=== PATIENT | female | born 1990 | race Caucasian/White ===

== ENCOUNTER 2021-02-26 06:17 | Inpatient (IN) ==
[~2021-02-26 06:17] MED LIST: Buffered Lidocaine 1% SYRIN 1 ml INTRADERM ONE; Lactated Ringers 1000 ml BAG 1,000 ML IV SCH
[2021-02-26] MEDS ORDERED: Heparin 5000 UNITS/ML 1 mL VIAL ONE (06:46)
[2021-02-26] MEDS ORDERED: ceFAZolin 2 GM PREMIX 2 GM/50 ML BAG ONE (06:47)
[2021-02-26] MEDS ORDERED: ceFAZolin 1 GM ADVAN 1 GM ADDV.VIAL IVPB ONE (06:47)
[2021-02-26] MEDS ORDERED: Propofol 10 MG/ML 20 ML BTL ONE ×2 (07:04→08:13)
[2021-02-26] MEDS ORDERED: Lidocaine 2% PF 5 ML VIAL ONE (07:04)
[2021-02-26] MEDS ORDERED: Rocuronium 50 mg VIAL 10 mg/ml 5 ml VIAL (50 mg) ONE ×3 (07:04→11:07)
[2021-02-26] MEDS ORDERED: Midazolam 2 mg/2 ml VIAL 1 mg/ml 2 ml VIAL (2 mg) ONE (07:04)
[2021-02-26] MEDS ORDERED: fentaNYL 250 mcg/5 ml 50 MCG/ML 5 ml VIAL (250 MCG) ONE (07:04)
[2021-02-26] MEDS ORDERED: Methylene Blue 0.5 % 50 MG/10 ML AMP IV ONE (07:20)
[2021-02-26] MEDS ORDERED: Bupivacaine 0.25% EPI 200,000 30 ML SDV ONE ×2 (07:21→08:37)
[2021-02-26] MEDS ORDERED: Dexamethasone IV 4 MG/ML VIAL 1 ml VIAL ONE (07:50)
[2021-02-26] MEDS ORDERED: Ondansetron 4 mg VIAL 2 MG/ML 2 ml VIAL ONE (07:50)
[2021-02-26] MEDS ORDERED: HYDROmorphone 1 MG/1 ML SYRINGE ONE (07:54)
[2021-02-26] MEDS ORDERED: Acetaminophen IV 1 GM/100ML 1,000 MG/100 ML VIAL IVPB PRN (08:19)
[2021-02-26] MEDS ORDERED: Ondansetron 4 mg VIAL 2 MG/ML 2 ml VIAL IV PRN (08:19)
[2021-02-26] MEDS ORDERED: HYDROmorphone 1 MG/1 ML SYRINGE IV PRN (08:19)
[2021-02-26] MEDS ORDERED: Naloxone 0.4 mg VIAL 0.4 mg/ml 1 ml VIAL IV PRN (08:19)
[2021-02-26] MEDS ORDERED: DiMENhydriNATE IV 50 mg/ml 1 ml VIAL IV PUSH PRN (08:19)
[2021-02-26] MEDS ORDERED: Acetaminophen IV 1 GM/100ML 100 ML ONE ×2 (08:55→13:05)
[2021-02-26] MEDS ORDERED: Dexmedetomidine 200 mcg/2 ml 2 ml VIAL (200 mcg) ONE (09:16)
[2021-02-26] MEDS ORDERED: fentaNYL 100 mcg/2 ml 50 MCG/ML VIAL ONE ×3 (09:58→13:47)
[2021-02-26] MEDS ORDERED: HYDROmorphone 0.5 MG/0.5 ML SYRINGE IV SLOW PU PRN (12:24)
[2021-02-26] MEDS ORDERED: diPHENhydraMINE IV 50 MG/ML 1 ml VIAL (BENADRYL) SLOW PUSH PRN (12:24)
[2021-02-26] MEDS: fentaNYL 100 mcg/2 ml 50 MCG/ML VIAL IV PRN ×3 (13:09→13:48)
[2021-02-26] MEDS ORDERED: DiMENhydriNATE IV 50 mg/ml 1 ml VIAL ONE (13:12)
[2021-02-26] MEDS: Lactated Ringers 1000 ml BAG 1,000 ML IV SCH (14:37)
[2021-02-26] MEDS: Famotidine IV 10 MG/ML 2 ml VIAL (20 mg) IV SLOW PU SCH (21:54)
[2021-02-26] MEDS: HYDROmorphone 1 MG/1 ML SYRINGE IV SLOW PU PRN (21:54)
[2021-02-26] MEDS: Ondansetron 4 mg VIAL 2 MG/ML 2 ml VIAL IV PRN (21:54)
[2021-02-27] MEDS: Lactated Ringers 1000 ml BAG 1,000 ML IV SCH ×2 (00:52→07:33)
[2021-02-27] MEDS: HYDROmorphone 1 MG/1 ML SYRINGE IV SLOW PU PRN ×2 (05:41→10:00)
[2021-02-27] MEDS: Famotidine IV 10 MG/ML 2 ml VIAL (20 mg) IV SLOW PU SCH ×2 (09:28→21:05)
[2021-02-27] MEDS: Ondansetron 4 mg VIAL 2 MG/ML 2 ml VIAL IV PRN ×2 (12:36→21:16)
[2021-02-27] MEDS: Bacitracin OINTMENT TUBE TOPICAL SCH (13:30)
[2021-02-27] MEDS: HYDROcodone/ACET. 7.5/325 LIQ 15 ML UDC PO PRN ×2 (14:27→21:23)
[2021-02-27] MEDS: D5W 1/2 NS KCl 20 meq 1000 ml 1,000 ML IV SCH ×2 (15:53→23:33)
[2021-02-28] MEDS: Ondansetron 4 mg VIAL 2 MG/ML 2 ml VIAL IV PRN (03:32)
[2021-02-28] MEDS: D5W 1/2 NS KCl 20 meq 1000 ml 1,000 ML IV SCH (07:46)
[2021-02-28] MEDS: Famotidine IV 10 MG/ML 2 ml VIAL (20 mg) IV SLOW PU SCH (08:42)
[2021-02-28] MEDS: Bacitracin OINTMENT TUBE TOPICAL SCH (08:45)
[2021-02-28 10:56] VITALS: BP 153/76
== END 2021-02-28 13:30 | disposition home or self-care (01) ==
LOC: AA 06:17 → SSU 14:24
PROVIDERS: ADMIT Surgery; ATTEND Surgery